=== PATIENT | female | born 1950 | race African-American/Black ===

== ENCOUNTER 2018-07-12 12:56 | Emergency (ER) | payer MEDICARE ==
[2018-07-12 13:02] VITALS: BP 156/81
[2018-07-12] MEDS ORDERED: HYDROCODONE/ACETAMINOPHEN 5-325 MG TABLET PO ONE (13:39)
--- NOTE | 2018-07-12 13:40 | ER Document Report ---
ED Medical Screen (RME) - General Chief Complaint: Headache Stated Complaint: BLOOD PRESSURE ISSUE, HEADACHE, NECK PAIN Time Seen by Provider: 07/12/18 13:34 Notes: 67 years old female presents today with elevated blood pressure, couple of times had a fall because of dizziness. No loss of consciousness. Currently having headache and left-sided neck pain. Obese, sharp tenderness over the left paraspinal muscles noted as well as neck muscles. TRAVEL OUTSIDE OF THE [place] IN LAST 30 DAYS: No - Related Data Allergies/Adverse Reactions: Penicillins Allergy (Verified 07/12/18 12:59) promethazine [From Phenergan] Allergy (Verified 07/12/18 12:59) Past Medical History - Social History Frequency of alcohol use: None Drug Abuse: None - Past Medical History Cardiac Medical History: Reports: Hx Atrial Fibrillation, Hx Hypertension Renal/ Medical History: Denies: Hx Peritoneal Dialysis GI Medical History: Reports: Hx Gastroesophageal Reflux Disease Past Surgical History: Reports: Hx Orthopedic Surgery - right knee replacement and back surgery Physical Exam - Vital signs Vitals: Temp Pulse Resp BP Pulse Ox 97.9 F 58 L 18 156/81 H 98 07/12/18 12:59 07/12/18 12:59 07/12/18 12:59 07/12/18 12:59 07/12/18 12:59 Course - Vital Signs Vital signs: Temp Pulse Resp BP Pulse Ox 97.9 F 58 L 18 156/81 H 98 07/12/18 12:59 07/12/18 12:59 07/12/18 12:59 07/12/18 12:59 07/12/18 12:59
[2018-07-12 14:42] LABS: ABSOLUTE BASOPHILS # (AUTO) 0.1 10^3/uL (0.0-0.2); ABSOLUTE LYMPHOCYTES (AUTO) 2.2 10^3/uL (0.5-4.7); ABSOLUTE MONOCYTES (AUTO) 0.4 10^3/uL (0.1-1.4); ABSOLUTE NEUT (AUTO) 1.7 10^3/uL (1.7-8.2); BASOPHILS % (AUTO) 1.6 % (0-2); EOSINOPHILS % (AUTO) 1.1 % (0-6); HEMATOCRIT 39.8 % (36.0-47.0); HEMOGLOBIN 13.7 g/dL (12.0-15.5); LYMPHOCYTES % (AUTO) 50.1 % (13-45); MEAN CORPUSCULAR HGB CONC 34.5 g/dL (32.0-36.0); MEAN CORPUSCULAR VOLUME 104 fl (80-97); MONOCYTES % (AUTO) 8.4 % (3-13); PLATELET COUNT 387 10^3/uL (150-450); RED BLOOD COUNT 3.82 10^6/uL (3.72-5.28); SEGMENTED NEUTROPHILS % (AUTO) 38.8 % (42-78); TOTAL CELLS COUNTED % (AUTO) 100 %; WHITE BLOOD COUNT 4.4 10^3/uL (4.0-10.5)
--- NOTE | 2018-07-12 14:48 | RADIOLOGY REPORT (SQ) ---
EXAM DESCRIPTION: CT HEAD WITHOUT COMPLETED DATE/TIME: 07/12/2018 2:40 pm REASON FOR STUDY: Headache COMPARISON: None. TECHNIQUE: Axial images acquired through the brain without intravenous contrast. Images reviewed wi th bone, brain and subdural windows. Additional sagittal and coronal reconstructions were generated. Images stored on PACS. All CT scanners at this facility use dose modulation, iterative reconstruction, and/or weight based d osing when appropriate to reduce radiation dose to as low as reasonably achievable (ALARA). [facility]: Dose Right [facility]: CareDose [facility]: Dose Right [facility]: Teradose 4D [facility]: [employer] RADIATION DOSE: CT Rad equipment meets quality standard of care and radiation dose reduction techniq ues were employed. CTDIvol: 53.2 mGy. DLP: 1044 mGy-cm. mGy. LIMITATIONS: None. FINDINGS: VENTRICLES: Normal size and contour. CEREBRUM: No masses. No hemorrhage. No midline shift. No evidence for acute infarction. Normal gra y/white matter differentiation. No areas of low density in the white matter. CEREBELLUM: No masses. No hemorrhage. No alteration of density. No evidence for acute infarction. EXTRAAXIAL SPACES: No fluid collections. No masses. ORBITS AND GLOBE: No intra- or extraconal masses. Normal contour of globe without masses. CALVARIUM: No fracture. PARANASAL SINUSES: No fluid or mucosal thickening. SOFT TISSUES: No mass or hematoma. OTHER: No other significant finding. IMPRESSION: No acute intracranial pathology. EVIDENCE OF ACUTE STROKE: NO. COMMENT: Quality ID # [id number]: Final reports with documentation of one or more dose reduction techniques (e.g., Automated exposure control, adjustment of the mA and/or kV according to patient size, use of iterative reconstruction technique) TECHNICAL DOCUMENTATION: JOB ID: [id number] [employer]- All Rights Reserved Reading location - IP/workstation name: [email or web address]
[2018-07-12 14:49] LABS: APPEARANCE,URINE SLIGHTLY-CLOUDY; BILIRUBIN,URINE NEGATIVE (NEGATIVE); COLOR,URINE YELLOW; GLUCOSE, URINE NEGATIVE (NEGATIVE); KETONES,URINE NEGATIVE (NEGATIVE); LEUKOCYTE ESTERASE,URINE NEGATIVE (NEGATIVE); NITRITE,URINE NEGATIVE (NEGATIVE); PROTEIN,URINE 30 mg/dL (NEGATIVE); URINE SPECIFIC GRAVITY 1.032
--- NOTE | 2018-07-12 14:51 | RADIOLOGY REPORT (SQ) ---
EXAM DESCRIPTION: CT CERVICAL SPINE WITHOUT COMPLETED DATE/TIME: 07/12/2018 2:40 pm REASON FOR STUDY: Neck pain COMPARISON: None. TECHNIQUE: Axial images acquired through the cervical spine without intravenous contrast. Images re viewed with lung, soft tissue and bone windows. Reconstructed coronal and sagittal MPR images review ed. Images stored on PACS. All CT scanners at this facility use dose modulation, iterative reconstruction, and/or weight based d osing when appropriate to reduce radiation dose to as low as reasonably achievable (ALARA). [facility]: Dose Right [facility]: CareDose [facility]: Dose Right [facility]: Teradose 4D [facility]: [employer] RADIATION DOSE: CT Rad equipment meets quality standard of care and radiation dose reduction techniq ues were employed. CTDIvol: 24.2 mGy. DLP: 516 mGy-cm. mGy. LIMITATIONS: None. FINDINGS: ALIGNMENT: Anatomic. MINERALIZATION: Normal. VERTEBRAL BODIES: No fractures or dislocation. DISCS: Moderate multilevel disc degenerative disease and osteophytosis. FACETS, LATERAL MASSES, POSTERIOR ELEMENTS: Mild multilevel facet degenerative disease. No fracture s. No dislocation. No acute findings. HARDWARE: None in the spine. VISUALIZED RIBS: No fractures. LUNG APICES AND SOFT TISSUES: No significant or acute findings. OTHER: No other significant finding. IMPRESSION: No fracture or static subluxation of the cervical spine. Multilevel disc and facet dege nerative disease. TECHNICAL DOCUMENTATION: JOB ID: [id number] Quality ID # [id number]: Final reports with documentation of one or more dose reduction techniques (e.g., Au tomated exposure control, adjustment of the mA and/or kV according to patient size, use of iterative reconstruction technique) 2010 [employer]- All Rights Reserved Reading location - IP/workstation name: [email or web address]
[2018-07-12 15:00] LABS: ALANINE AMINOTRANSFERASE 16 U/L (9-52); ALBUMIN 4.1 g/dL (3.5-5.0); ALKALINE PHOSPHATASE 111 U/L (38-126); ANION GAP 10 (5-19); ASPARTATE AMINO TRANSFERASE 15 U/L (14-36); BILIRUBIN,DIRECT 0.3 mg/dL (0.0-0.4); BILIRUBIN,TOTAL 0.6 mg/dL (0.2-1.3); BLOOD UREA NITROGEN 15 mg/dL (7-20); CALCIUM 9.5 mg/dL (8.4-10.2); CARBON DIOXIDE 27 mmol/L (22-30); CHLORIDE 105 mmol/L (98-107); GLUCOSE 89 mg/dL (75-110); POTASSIUM 4.4 mmol/L (3.6-5.0); SODIUM 142.4 mmol/L (137-145); TOTAL PROTEIN 8.3 g/dL (6.3-8.2)
[2018-07-12] MEDS ORDERED: LIDOCAINE 5% (700 MG) TRANSDERMAL ADH..PATCH TP ONE (15:09)
[2018-07-12] MEDS ORDERED: DIAZEPAM 2 MG TABLET PO ONE (15:09)
--- NOTE | 2018-07-12 15:27 | ER Document Report ---
ED Headache - General Chief Complaint: Headache Stated Complaint: BLOOD PRESSURE ISSUE, HEADACHE, NECK PAIN Time Seen by Provider: 07/12/18 13:34 Mode of Arrival: Ambulatory Information source: Patient TRAVEL OUTSIDE OF THE [place] IN LAST 30 DAYS: No - HPI Patient complains to provider of: Other - 67-year-old female who presents for evaluation of pain in her left neck as well as a headache which is developed over the last couple of days while she was attempting to put up holiday decorations. She notes that she was in town seeing her doctor for something else and because the pain had persisted she decided to be evaluated in the emergency room. She denies a history of headaches in the past, denies any chest pain shortness of breath loss of consciousness abdominal pain diarrhea constipation dysuria fevers or rashes, she is not tried anything to try and help with this nothing is seem to make it better or worse. - Related Data Allergies/Adverse Reactions: Penicillins Allergy (Verified 07/12/18 12:59) promethazine [From Phenergan] Allergy (Verified 07/12/18 12:59) Past Medical History - General Information source: Patient - Social History Smoking Status: Current Every Day Smoker Frequency of alcohol use: None Drug Abuse: None Family History: None Patient has suicidal ideation: No Patient has homicidal ideation: No - Past Medical History Cardiac Medical History: Reports: Hx Atrial Fibrillation, Hx Hypertension Renal/ Medical History: Denies: Hx Peritoneal Dialysis GI Medical History: Reports: Hx Gastroesophageal Reflux Disease Past Surgical History: Reports: Hx Orthopedic Surgery - right knee replacement and back surgery Review of Systems - Review of Systems -: Yes All other systems reviewed and negative Physical Exam - Vital signs Vitals: Temp Pulse Resp BP Pulse Ox 97.9 F 58 L 18 156/81 H 98 07/12/18 12:59 07/12/18 12:59 07/12/18 12:59 07/12/18 12:59 07/12/18 12:59 - General General appearance: Appears well, Alert - HEENT Head: Normocephalic, Atraumatic Eyes: Normal Pupils: PERRL - Respiratory Respiratory status: No respiratory distress Chest status: Nontender Breath sounds: Normal Chest palpation: Normal - Cardiovascular Rhythm: Regular Heart sounds: Normal auscultation Murmur: No - Abdominal Inspection: Normal Distension: No distension Bowel sounds: Normal Tenderness: Nontender Organomegaly: No organomegaly - Back Back: Normal, Nontender - Extremities General upper extremity: Normal inspection, Nontender, Normal color, Normal ROM , Normal temperature General lower extremity: Normal inspection, Nontender, Normal color, Normal ROM , Normal temperature, Normal weight bearing. No: Rl's sign - Neurological Neuro grossly intact: Yes Cognition: Normal Orientation: AAOx4 Lindsay Coma Scale Eye Opening: Spontaneous Moira Coma Scale Verbal: Oriented Lindsay Coma Scale Motor: Obeys Commands Lindsay Coma Scale Total: 15 Speech: Normal Motor strength normal: LUE, RUE, LLE, RLE Sensory: Normal - Psychological Associated symptoms: Normal affect, Normal mood Course - Re-evaluation Re-evalutation: 07/12/18 23:46 This 67-year-old female who has pain and tightness in her left trapezius which is progressed to causing her headache. Through triage she had a CT scan of her head as well as her neck ordered. She had labs ordered as well. This appears to be a muscle spasm likely as a result of a muscle strain. As such we will plan for conservative management give her a low dose of Valium in the emergency department. Gave her a Lidoderm patch. These medications seem to improve her symptoms, she had normal range of motion thereafter. We discussed possible options related to further treatment including further testing, imaging, labs. She does have a normal CT of her head as well as normal scan of her cervical spine. As these are normal in appearance do not believe that she requires at this time further imaging she is in agreement. She prefers to proceed with a conservative approach and outpatient management with follow-up. We will give her a brief prescription for Valium, will give her a brief prescription for Voltaren gel as well as Lidoderm cream. She was encouraged to follow-up with her primary physician regarding her muscle tension. Do not believe this represents a more serious underlying cause of headache and muscle spasm such as but not limited to meningitis CVA or fracture. - Vital Signs Vital signs: Temp Pulse Resp BP Pulse Ox 97.9 F 58 L 18 156/81 H 98 07/12/18 12:59 07/12/18 12:59 07/12/18 12:59 07/12/18 12:59 07/12/18 12:59 - Laboratory Result Diagrams: 07/12/18 14:28 12/06/18 14:28 Laboratory results interpreted by me: 07/12/18 07/12/18 07/12/18 14:28 14:28 14:28 MCV 104 H MCH 36.0 H RDW 15.0 H Seg Neutrophils % 38.8 L Lymphocytes % 50.1 H Total Protein 8.3 H Urine Protein 30 H Urine Urobilinogen 2.0 H Discharge - Discharge Clinical Impression: Tension headache Trapezius muscle strain Qualifiers: Encounter type: initial encounter Laterality: unspecified laterality Qualified Code(s): S46.819A - Strain of other muscles, fascia and tendons at shoulder and upper arm level, unspecified arm, initial encounter Headache Qualifiers: Headache type: unspecified Headache chronicity pattern: unspecified pattern Intractability: not intractable Qualified Code(s): R51 - Headache Condition: Good Disposition: HOME, SELF-CARE Instructions: Headache ([facility]), Muscle Relaxers ([facility]), Muscle Strain ([facility]) Additional Instructions: You were seen today in the emergency department for the pain in your shoulder as well as your headache. It is likely that you have a tension headache. Use the medication prescribed you only as needed for the tension. You can use the creams prescribed to you twice a day each. You can return for worsening fevers, chills, lightheadedness, if you begin to pass out again or there is other symptoms. Prescriptions: Diazepam [Valium 2 mg Tablet] 2 mg PO BID PRN #16 tablet PRN Reason: Muscle Spasms Diclofenac Sodium [Voltaren] 100 gm TP BID #1 gel..gm. Lidocaine HCl [Xylocaine] 35 gm TP BID #1 oint..gm. Forms: Elevated Blood Pressure
--- NOTE | 2018-07-12 22:38 | EKG REPORT ---
SEVERITY:- ABNORMAL ECG - SINUS RHYTHM LEFT VENTRICULAR HYPERTROPHY : Confirmed by: Darek Saeed 12-Jul-2018 22:37:26
== END 2018-07-12 15:45 | disposition home or self-care (01) ==
LOC: ER 12:56
DX: S46.819A Strain of other muscles, fascia and tendons at shoulder and upper arm level, unspecified arm, initial encounter (principal); G44.209 Tension-type headache, unspecified, not intractable; M54.2 Cervicalgia; X58.XXXA Exposure to other specified factors, initial encounter; F17.200 Nicotine dependence, unspecified, uncomplicated; I48.91 Unspecified atrial fibrillation; I10 Essential (primary) hypertension; Z88.0 Allergy status to penicillin; Z96.651 Presence of right artificial knee joint
CPT/HCPCS: 93005; 99284; 36415; 85025; 80053; 81001; 70450; 72125; 93010; A9270 ×2; J3490